=== PATIENT | male | born 1985 | race Two or more races ===

== ENCOUNTER 2022-10-03 22:08 | Emergency (ER) | payer SELFPAY ==
[2022-10-03] MEDS ORDERED: Sodium Chloride 0.9% 1,000 ML IV ONE (22:25)
[2022-10-03] MEDS ORDERED: Morphine 4 MG/ML Syringe IVPUSH ONE (22:25)
[2022-10-03] MEDS ORDERED: Ondansetron 4 MG/2 ML SDV IVPUSH PRN (22:25)
[2022-10-03 22:46] LABS: BASOPHILS ABSOLUTE AUTO 0.02 K/mm3 (0.01-0.08); BASOPHILS PERCENT AUTO 0.3 % (0.1-1.2); EOSINOPHILS ABSOLUTE AUTO 0.12 K/mm3 (0.04-0.54); HEMATOCRIT 47.4 % (40.1-51.0); HEMOGLOBIN 16.1 gm/dl (13.7-17.5); IMMATURE GRAN ABSOLUTE AUTO 0.01 K/mm3 (0.00-0.10); IMMATURE GRAN PERCENT AUTO 0.2 % (<=1.0); LYMPHOCYTES ABSOLUTE AUTO 2.02 K/mm3 (1.32-3.57); LYMPHOCYTES PERCENT AUTO 32.8 % (21.8-53.1); MEAN CORPUSCULAR HEMOGLOBIN 29.4 pg (25.7-32.2); MEAN CORPUSCULAR VOLUME 86.5 fl (79.0-92.2); MEAN PLATELET VOLUME 9.9 fl (9.4-12.3); MONOCYTES ABSOLUTE AUTO 0.46 K/mm3 (0.30-0.82); MONOCYTES PERCENT AUTO 7.5 % (5.3-12.2); NEUTROPHILS ABSOLUTE AUTO 3.52 K/mm3 (1.78-5.38); NEUTROPHILS PERCENT AUTO 57.2 % (34.0-67.9); PLATELET COUNT,PLT 263 K/mm3 (163-337); RED BLOOD CELL COUNT 5.48 M/mm3 (4.63-6.08); WHITE BLOOD CELL COUNT,WBC 6.15 K/mm3 (4.23-9.07)
[2022-10-03 23:11] LABS: A/G RATIO 1.1 (1-2); ALBUMIN 4.2 g/dl (3.4-5.0); ANION GAP 11.5 (5-15); BILIRUBIN TOTAL 0.6 mg/dL (0.2-1.0); CALCIUM 9.5 mg/dL (8.5-10.1); EST CRCL DRUG DOSING (CG) 103.1 mL/min; POTASSIUM,K 3.5 mEq/L (3.5-5.1)
[2022-10-03] MEDS ORDERED: Iopamidol 612 MG/ML 100 ML Bottle IVPUSH ONE (23:11)
[2022-10-03] MEDS ORDERED: HYDROmorphone 0.5 MG/0.5 ML Syringe IVPUSH ONE (23:51)
[2022-10-04 00:17] LABS: APPEARANCE,URINE CLEAR (Clear); BILIRUBIN,URINE NEGATIVE (Negative); COLOR,URINE YELLOW (Yellow); GLUCOSE,URINE NEGATIVE (Negative); KETONES,URINE NEGATIVE (Negative); LEUKOCYTE ESTERASE,URINE NEGATIVE (Negative); NITRITE,URINE NEGATIVE (Negative); OCCULT BLOOD,URINE 2+ (Negative); PH,URINE 6.5 (5.0-8.0); PROTEIN,URINE NEGATIVE (Negative); UROBILINOGEN,URINE 0.2 (0.2-1.0)
[2022-10-04 00:28] LABS: BACTERIA,URINE RARE /hpf (FEW); SQUAMOUS EPITHELIAL CELLS,UR 0-5 /hpf (0-5); WBC,URINE 0-5 /hpf (0-5)
[2022-10-04 00:29] LABS: MUCUS,URINE NOT SEEN /hpf (FEW)
== END 2022-10-04 02:00 | disposition home or self-care (01) ==
LOC: JD.ED 22:08
DX: N23 Unspecified renal colic (principal)
CPT/HCPCS: 36415; 74176; 74177; 80053; 81001; 83690; 85025; 96374; 96375; 99284; J1170; J2270; J2405; J7030